=== PATIENT | male | born 1995 | race Caucasian/White ===

== ENCOUNTER 2017-10-12 10:54 | Emergency (ER) | payer OTHER ==
[~2017-10-12] VITALS: Ht 182.9 cm; Wt 120.2 kg
[2017-10-12 12:59] VITALS: BP 131/68
== END 2017-10-12 13:47 | disposition home or self-care (01) ==
LOC: ER 11:14
DX: J02.9 Acute pharyngitis, unspecified (principal)
CPT/HCPCS: 99283; A4606; Z7610